=== PATIENT | male | born 1975 | race Caucasian/White ===

== ENCOUNTER 2018-04-29 17:35 | Emergency (ER) | payer SELFPAY, OTHER | END 2018-04-29 18:31 | disposition home or self-care (01) | LOC: E/R 17:35 | DX: S06.0X0A Concussion without loss of consciousness, initial encounter (principal); S00.11XA Contusion of right eyelid and periocular area, initial encounter; V18.0XXA Pedal cycle driver injured in noncollision transport accident in nontraffic accident, initial encounter | CPT/HCPCS: 99282 ==